=== PATIENT | male | born 1975 | race Caucasian/White ===

== ENCOUNTER → 2017-09-23 | Outpatient (REF) | payer OTHER ==
[2017-09-23 15:46] LABS: ALBUMIN 4.1 GM/DL (3.2-5.2); ALBUMIN/GLOBULIN RATIO 1.08 (1.00-1.93); ALKALINE PHOSPHATASE 85 U/L (45-117); ALT/SGPT 58 U/L (12-78); AST/SGOT 58 U/L (7-37); BILIRUBIN,DIRECT 0.2 MG/DL (0.0-0.2); BILIRUBIN,TOTAL 0.6 MG/DL (0.2-1.0); TOTAL PROTEIN 7.9 GM/DL (6.4-8.2)
== END ==
LOC: M LAB REF 14:45 → M LABDRAW1 14:55
DX: M47.897 Other spondylosis, lumbosacral region (principal)

== ENCOUNTER → 2017-12-16 | Outpatient (REF) | payer OTHER ==
[2017-12-16 16:02] LABS: ALBUMIN 4.2 GM/DL (3.2-5.2); ALBUMIN/GLOBULIN RATIO 1.14 (1.00-1.93); ALKALINE PHOSPHATASE 85 U/L (45-117); ALT/SGPT 43 U/L (12-78); AST/SGOT 33 U/L (7-37); BILIRUBIN,DIRECT 0.1 MG/DL (0.0-0.2); BILIRUBIN,TOTAL 0.4 MG/DL (0.2-1.0); TOTAL PROTEIN 7.9 GM/DL (6.4-8.2)
== END ==
LOC: M LABDRAW1 11:15
DX: M51.37 Other intervertebral disc degeneration, lumbosacral region (principal)

== ENCOUNTER 2018-01-18 06:55 | Day surgery (SDC) | payer OTHER ==
[2018-01-18] MEDS: NS 1,000 ML IV (07:15)
[2018-01-18] MEDS ORDERED: PROPOFOL 500 MG/50 ML VIAL As Ordered (08:33)
[2018-01-18] MEDS ORDERED: fentaNYL 100 MCG/2 ML INJECTION (J3010) As Ordered (08:33)
[2018-01-18] MEDS ORDERED: LIDOCAINE 2% INJ 100 MG/5 ML SDV (FOR ANES.) As Ordered (08:33)
== END 2018-01-18 09:50 | disposition home or self-care (01) ==
LOC: M OPP 06:55
DX: K64.8 Other hemorrhoids (principal); K62.1 Rectal polyp; K52.9 Noninfective gastroenteritis and colitis, unspecified; K92.1 Melena; K29.70 Gastritis, unspecified, without bleeding; K31.89 Other diseases of stomach and duodenum; I10 Essential (primary) hypertension; K21.9 Gastro-esophageal reflux disease without esophagitis; G47.30 Sleep apnea, unspecified; J45.990 Exercise induced bronchospasm; M54.9 Dorsalgia, unspecified; Z79.899 Other long term (current) drug therapy
CPT/HCPCS: 45380

== ENCOUNTER 2020-01-26 15:18 | Day surgery (SDC) | payer OTHER ==
[~2020-01-26 15:18] MED LIST: NAPR1TAB83 PO; OLME1TAB45 PO; OMEP1CAP73 PO; TIZA4CAP PO; TOPI25TA10 PO; VITA-243 PO; VITA100067 PO; VITA50005 PO
[2020-01-26 16:00] VITALS: BP 127/71
[2020-01-26] MEDS ORDERED: NS 1,000 ML IV SCH (16:42)
[2020-01-26] MEDS ORDERED: ACETAMINOPHEN TAB 650MG DOSE (2X325MG) PO PRN ×2 (16:45→22:00)
[2020-01-26] MEDS ORDERED: BISACODYL 10 MG SUPP PR PRN (16:45)
[2020-01-26] MEDS ORDERED: ONDANSETRON 4MG/2ML VIAL IV PRN ×3 (16:45→22:15)
[2020-01-26] MEDS ORDERED: ceFAZolin SOD 2 GM in D5W MINI-BAG PLUS 50 ML IV SCH (16:45)
[2020-01-26] MEDS ORDERED: oxyCODONE 5MG TAB PO PRN (16:45)
[2020-01-26] MEDS ORDERED: NORCO, ANEXSIA 5/325MG TABLET (HYDROcodone/ACETAMINOPHEN) PO PRN ×2 (16:45)
[2020-01-26] MEDS ORDERED: PREG100CA PO (16:48)
[2020-01-26] MEDS ORDERED: ceFAZolin SOD 2 GM in IV 1 EA IV SCH (18:00)
[2020-01-26] MEDS ORDERED: ceFAZolin 2 GM/D5W 50 ML IV BAG (J0690 PER 500MG) As Ordered ONE (20:23)
[2020-01-26] MEDS ORDERED: BUPIVACAINE/EPIN 0.25% 30 ML VIAL As Ordered ONE (20:23)
[2020-01-26] MEDS ORDERED: propofoL 200 MG/20 ML VIAL As Ordered ONE (20:31)
[2020-01-26] MEDS ORDERED: LIDOCAINE 2% 100MG/5ML SDV (FOR ANES.) As Ordered ONE (20:31)
[2020-01-26] MEDS ORDERED: KETAMINE HCL 200 MG/20 ML VIAL As Ordered ONE (20:31)
[2020-01-26] MEDS ORDERED: MIDAZOLAM INJ 2MG/2ML VIAL (J2250 PER 1MG) As Ordered ONE (20:32)
[2020-01-26] MEDS ORDERED: dexameTHASONE 4 MG/ML 1ML VIAL (J1100 PER 1MG) As Ordered ONE (20:33)
[2020-01-26] MEDS ORDERED: ONDANSETRON 4MG/2ML VIAL As Ordered ONE (20:33)
[2020-01-26] MEDS ORDERED: METOPROLOL 5 MG/5 ML VIAL As Ordered ONE (21:08)
[2020-01-26] MEDS ORDERED: KETOROLAC 30 MG/ML 1ML VIAL IV PRN (21:45)
[2020-01-26] MEDS ORDERED: traMADol 50 MG TAB PO PRN (21:45)
[2020-01-26] MEDS ORDERED: LR 1,000 ML IV SCH ×2 (21:45→22:00)
[2020-01-26 22:15] VITALS: BP 125/72
[2020-01-26] MEDS ORDERED: MORPHINE 2 MG/ML 1ML VIAL (J2270) IV PRN (22:15)
[2020-01-26] MEDS ORDERED: PERCOCET 5MG/325MG TAB PO PRN (22:15)
[2020-01-26 22:45] VITALS: BP 114/70
--- NOTE | 2020-01-26 23:13 | HPE ---
DATE OF ADMISSION: 01/26/2020 CHIEF COMPLAINT: Left finger nail bed injury and laceration 5th digit, as well as 5th digit distal phalanx tuft fracture and 4th distal phalanx tuft fracture. HISTORY OF PRESENT ILLNESS: This 44-year-old man was doing some cement work at home. The cement or concrete finishing supervisor came back and crushed his left 4th and 5th digits. He is left-hand dominant. He was seen at [facility]. Apparently there was some cement in the wounds. They performed a bedside irrigation and debridement, splinting and covering up the wounds, and sent him to [facility] at my request. His tetanus was up to date, and he received Ancef 2 grams IV. PAST MEDICAL HISTORY: Includes hypertension and obstructive sleep apnea (LEONARD). MEDICATIONS: Include Topamax, omeprazole, naproxen, olmesartan, duloxetine, gabapentin, and tizanidine. DRUG ALLERGIES: No known drug allergies. SURGICAL HISTORY: Nil. SOCIAL HISTORY: Nonsmoker. Does not use alcohol or drugs. His shipping lead person is his , Radha. 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 His 's number is [phone]. PHYSICAL EXAM: Well appearing 44-year-old man in no acute distress. Alert and oriented times three. Mood and affect pleasant, positive. Patient is normal. He is lying supine in bed. He is able to easily sit up. He has got a bandage on his left 5th digit. This was removed. He has a laceration and removal of the ulnar side of 50% of the nail. The laceration is approximately 2 cm long, mostly on the radial side longitudinally. There is normal sensation both sides of the digit. There is some mild swelling to the distal area of the left 4th digit as well. There is a small 25% subungual hematoma to the left 3rd nail as well. He can flex and extend all the digits of the distal interphalangeal (DIP), proximal interphalangeal (PIP) and metacarpophalangeal (MCP) joints. They are warm and well perfused with cap refill under 3 seconds. No obvious exposed bone. Radiographs were reviewed from [facility] from today; AP, lateral and two obliques. There are tuft fractures of the distal phalanx of both 4th and 5th digits. I agree with the radiologist's interpretation. There is some associated soft tissue deformity of the 5th digit, indicating underlying open fracture. No other injuries. ASSESSMENT/PLAN: This 44-year-old man has tuft fractures of the distal phalanx of both 4th and 5th digits, as well as a nail bed injury to the 5th digit, and a laceration. We discussed the pros, the cons, the risks and benefits of nonsurgical management versus operative intervention, which includes, but not limited to, irrigation and debridement, possible nail bed repair or nail bed splinting, wound closure and splinting 4th and 5th digits for their respective fractures. Specific surgical risks include, but are not to limited to, infection pain, stiffness, weakness, bleeding, neurovascular injury, neuroma, nail bed complications, for example, loss of the nail bed and hook nail, as well as anesthetic complications, blood clots, and other risks. He wished to go ahead. We marked the left upper extremity and signed consent for surgery as well as possible need for blood products, and I explained the pros and cons, the risks and benefits of that to him as well. For now, we will cover this up with a dressing and make him nothing by mouth in preparation for surgery, hopefully tonight.
[2020-01-27 02:00] VITALS: BP 110/67
[2020-01-27 06:00] VITALS: BP 118/72
[2020-01-27] MEDS ORDERED: ceFAZolin SOD 2 GM in IV 1 EA IV ONE (06:00)
--- NOTE | 2020-01-27 10:47 | RO ---
DATE OF PROCEDURE: 01/26/2020 PREOPERATIVE DIAGNOSIS: Left fourth digit distal phalanx tuft fracture plus left fifth digit distal phalanx tuft fracture and nail bed injury and laceration. POSTOPERATIVE DIAGNOSIS: Left fourth digit distal phalanx tuft fracture plus left fifth digit distal phalanx tuft fracture and nail bed injury and laceration. PLANNED PROCEDURE: Left fifth digit irrigation, debridement and closure, possible nail beds splinting repair. PROCEDURE PERFORMED: Left fourth digit splinting of the distal phalanx tuft fracture, plus irrigation and debridement of left fifth digit, plus closure, plus splinting of the left fifth digit distal phalanx tuft fracture. SURGEON: Denton Gerardo MD ASSOCIATE DEAN: Dr. Bonilla TYPE OF ANESTHETIC: Local and monitored anesthesia care (MAC). OPERATIVE PREAMBLE: This 44-year-old man sustained a laceration to his left fourth digit. We talked about the pros and cons, risks and benefits of nonsurgical management versus operative intervention. I reiterated the risk in preoperative holding, marked the left upper extremity and proceeded to surgery. OPERATIVE REPORT: Patient was brought to the operating theater. There placed supine on the operating room table. Hand table was used to the patient's left side. Local preoperative risk block, plus local anesthetic and sedation was used. The limb was prepped and draped in the usual sterile fashion with iodine base prep solution. This was allowed to thoroughly dry for at least 3 minutes prior to draping. Preop time-out was performed to confirm the site, the patient and surgery. IV antibiotics 2 grams of Ancef had been given prior to case. I began by thoroughly irrigating the wound. I identified the wound edges. The nail bed had only been taken off by about 10% and most of the nail bed remains. So, I did not elect to splint that open. It remained open on its own. I then instilled 1 mL of 0.25% Marcaine with epinephrine at the ulnar side, digital nerve as well as well about 1/2 mL of the tip of the finger. I closed the subcutaneous tissue with one interrupted #3-0 Vicryl suture as well as skin with interrupted #3-0 Ethilon suture. The skin was cleaned with wet and dry dressing followed by application of Adaptic gauze and Soo wrap overwrapped the fifth digit. In terms of the fourth digit, I splinted this in full extension only the distal interphalangeal joint (DIP) joint. The patient was woken up from sedation, transferred off the operating table and taken postanesthetic care unit in stable condition. All sponge, needle, and instrument counts were correct. Estimated blood loss 5 mL. No complications. Plan for the patient is to be discharged home according to day surgery criteria. He will not need a prescription and take [id number] medications. Followup in the office in 2 weeks' time to discontinue the sutures and check the wound.
== END 2020-01-27 08:45 | disposition home or self-care (01) ==
LOC: M SDC 15:18 → M MS5PR 15:20 → M SDC 01-27 08:45
PROVIDERS: ATTEND Orthopaedic Surgery Sports Medicine
DX: S62.667B Nondisplaced fracture of distal phalanx of left little finger, initial encounter for open fracture (principal); S62.645A Nondisplaced fracture of proximal phalanx of left ring finger, initial encounter for closed fracture; W23.0XXA Caught, crushed, jammed, or pinched between moving objects, initial encounter; Y92.007 Garden or yard of unspecified non-institutional (private) residence as the place of occurrence of the external cause; Y93.H3 Activity, building and construction; Y99.8 Other external cause status; I10 Essential (primary) hypertension; E78.49 Other hyperlipidemia; E66.9 Obesity, unspecified; G47.30 Sleep apnea, unspecified; K21.9 Gastro-esophageal reflux disease without esophagitis; Z79.899 Other long term (current) drug therapy
CPT/HCPCS: 11010; 12011; 29130; 96361; 96365; J0690; J1100; J2250; J2405; U0002

== ENCOUNTER → 2023-11-01 | Outpatient (CLI) | payer OTHER ==
[~2023-11-01] MED LIST changes: -OLME1TAB45 PO; +OLME1TAB51 PO; +PREG100CA PO
== END ==
LOC: M SLEEP 20:00
PROVIDERS: ATTEND Internal Medicine Pulmonary Disease
DX: G47.33 Obstructive sleep apnea (adult) (pediatric) (principal)

== ENCOUNTER → 2025-05-04 | Outpatient (CLI) | payer OTHER ==
[~2025-05-04] MED LIST changes: +CLAR10CA3 PO; +DULO1CAP4; +GABA-1172; +MELA10CA6 PO; -OLME1TAB51 PO; +OLME1TAB92 PO; +PREG-35 PO; -PREG100CA PO; +ROPI5TAB19; +SEMA1PEN4; +TIZA10TA; +TOPI-256 PO; -TOPI25TA10 PO
== END ==
LOC: M RAD 12:04
DX: D69.6 Thrombocytopenia, unspecified (principal)

== ENCOUNTER → 2025-06-25 | Outpatient (REF) | payer OTHER ==
[2025-06-25 17:21] LABS: APPEARANCE, URINE CLEAR (CLEAR); BACTERIA, URINE AUTO NEGATIVE (NEGATIVE); BILIRUBIN, URINE AUTO NEGATIVE (NEGATIVE); BLOOD, URINE BLOOD 3+ (NEGATIVE); GLUCOSE, URINE (UA) AUTO NEGATIVE (NEGATIVE); KETONE, URINE AUTO NEGATIVE (NEGATIVE); LEUKOCYTE ESTERASE, URINE AUTO TRACE (NEGATIVE); NITRITE, URINE AUTO NEGATIVE (NEGATIVE); PROTEIN, URINE AUTO NEGATIVE (NEGATIVE); RBC, URINE AUTO 39 /HPF (0-3); SPECIFIC GRAVITY URINE AUTO 1.012 (1.002-1.035); SQUAMOUS EPITHELIAL CELL UR AU 0 /HPF (0-6); UROBILINOGEN, URINE AUTO 0.2 mg/dL (0.0-2.0); WBC, URINE AUTO 2 /HPF (0-3)
== END ==
LOC: M SMT 16:37
PROVIDERS: ATTEND Nurse Practitioner Family
DX: N13.30 Unspecified hydronephrosis (principal)

== ENCOUNTER 2025-07-04 01:40 | Inpatient (IN) | payer OTHER ==
[2025-07-04] VITALS (7 sets, daily range): BP systolic 110–133; BP diastolic 58–89; TEMP 97–97.9; O2SAT 92–95
[~2025-07-04] VITALS: Ht 177.8 cm; Wt 174.9 kg
[~2025-07-04 01:40] MED LIST changes: -DULO1CAP4; +DULO1CAP4 PO; -GABA-1172; +GABA-1172 PO; -ROPI5TAB19; +ROPI5TAB19 PO; -TIZA10TA; +TIZA10TA PO
[2025-07-04 03:44] LABS: BASO # 0.0 10^3/uL (0.0-0.2); BASO % 0.3 % (0.0-1.0); EOS # 0.1 10^3/uL (0.0-0.5); EOS % 1.2 % (0.0-3.0); LYMPH # 0.9 10^3/uL (1.5-5.0); LYMPH % 15.0 % (24.0-44.0); MONO # 0.7 10^3/uL (0.0-0.8); MONO % 11.8 % (2.0-8.0); NEUTROPHILS # 4.3 10^3/uL (1.5-8.5); NEUTROPHILS % 71.0 % (36.0-66.0)
[2025-07-04 03:45] LABS: PLATELET COUNT, AUTOMATED 77 10^3/uL (150-450)
[2025-07-04 03:55] LABS: INR 1.12
[2025-07-04 04:10] LABS: CALCIUM LEVEL 8.3 MG/DL (8.5-10.1); CARBON DIOXIDE LEVEL 25.0 MMOL/L (20-31); CHLORIDE LEVEL 107.0 MMOL/L (98-107); CREATININE FOR GFR 2.11 MG/DL (0.70-1.30); GLOMERULAR FILTRATION RATE 37.7 (>60); POTASSIUM SERUM 4.0 MMOL/L (3.5-5.1); SODIUM LEVEL 143.0 MMOL/L (136-145)
[2025-07-04 06:00] LABS: VENOUS BASE EXCESS -1.9 (-2.0-2.0); VENOUS HCO3 23.1 MMOL/L (23.0-27.0); VENOUS O2 SATURATION 94.1 % (60.0-80.0); VENOUS PARTIAL PRESSURE CO2 40.3 mmHg (38.0-50.0); VENOUS PARTIAL PRESSURE O2 76.0 mmHg (30.0-50.0); VENOUS PH 7.377 UNITS (7.330-7.430); VENOUS STANDARD HCO3 22.9 MMOL/L; VENOUS TOTAL CO2 24.4 MMOL/L (24.0-28.0)
[2025-07-04 06:29] LABS: CK-MB VALUE MASS 3.5 NG/ML (<3.6)
[2025-07-04 06:31] LABS: CPK CREATINE PHOSPHOKINASE 186.0 U/L (46-171); MB/CK RELATIVE INDEX 1.88 (< OR =4)
[2025-07-04 06:32] LABS: ALT/SGPT 28.0 U/L (7.0-40); AST/SGOT 36.0 U/L (<34)
[2025-07-04 07:33] LABS: CK-MB VALUE MASS 3.3 NG/ML (<3.6)
[2025-07-04 07:35] LABS: CPK CREATINE PHOSPHOKINASE 177.0 U/L (46-171); MB/CK RELATIVE INDEX 1.86 (< OR =4)
[2025-07-04] MEDS: D5W/0.45% SODIUM CHLORIDE 1,000 ML IV SCH (09:07)
[2025-07-04] MEDS ORDERED: AMLO1TAB24 PO (09:29)
[2025-07-04] MEDS ORDERED: HOME MED LIST COMPLETE! XX SCH (09:35)
[2025-07-04] MEDS ORDERED: DICL100G10 TOP (09:35)
[2025-07-04 10:56] LABS: KETONE, URINE AUTO RFX NEGATIVE (NEGATIVE); LEUKOCYTE ESTERASE UR AUTO RFX NEGATIVE (NEGATIVE); MUCUS, URINE RFX SMALL (NEGATIVE); NITRITE, URINE AUTO RFX NEGATIVE (NEGATIVE); RBC, URINE AUTO RFX 113 /HPF (0-3); SQUAM EPITHELIAL CELL UR AURFX 0 /HPF (0-6); WBC, URINE AUTO RFX 2 /HPF (0-3)
[2025-07-04] MEDS ORDERED: LIDOCAINE 2% 100 MG/5 ML SDV (FOR ANES.) As Ordered ONE (16:12)
[2025-07-04] MEDS ORDERED: dexAMETHasone 4 MG/ML 1 ML VIAL As Ordered ONE (16:13)
[2025-07-04] MEDS ORDERED: ONDANSETRON 4MG/2ML VIAL As Ordered ONE (16:13)
[2025-07-04] MEDS ORDERED: MIDAZOLAM INJ 2 MG/2 ML VIAL As Ordered ONE (16:16)
[2025-07-04] MEDS ORDERED: ACETAMINOPHEN 1000MG/100ML IV BAG As Ordered ONE (17:00)
[2025-07-04] MEDS ORDERED: KETOROLAC 30 MG/ML 1 ML VIAL As Ordered ONE (17:00)
[2025-07-04] MEDS: ISOVUE-300 61% 100 ML VIAL As Ordered ONE (17:20)
[2025-07-04] MEDS: ACETAMINOPHEN 325 MG TAB PO ONE (23:14)
[2025-07-05] MEDS ORDERED: FLUID PLACE HOLDER IV SCH (02:00)
[2025-07-05] MEDS ORDERED: CEFAZOLIN SOD IV SCH (02:00)
[2025-07-05] MEDS: ceFAZolin SODIUM 2 GM in DEXTROSE 5% (D5W) ADV/MINI-BAG 50 ML IV SCH (02:55)
[2025-07-05 04:52] VITALS: BP 132/88; TEMP 98.2; O2SAT 94
[2025-07-05 07:32] LABS: PLATELET COUNT, AUTOMATED 82 10^3/uL (150-450)
[2025-07-05 07:37] LABS: CALCIUM LEVEL 8.6 MG/DL (8.5-10.1); CARBON DIOXIDE LEVEL 24.0 MMOL/L (20-31); CHLORIDE LEVEL 109.0 MMOL/L (98-107); CREATININE FOR GFR 2.13 MG/DL (0.70-1.30); GLOMERULAR FILTRATION RATE 37.2 (>60); POTASSIUM SERUM 4.6 MMOL/L (3.5-5.1); SODIUM LEVEL 145.0 MMOL/L (136-145)
[2025-07-05] MEDS: D5W/0.45% SODIUM CHLORIDE 1,000 ML IV ONE (11:49)
[2025-07-05] MEDS: rOPINIRole 0.25 MG TAB PO SCH (11:49)
[2025-07-05] MEDS: OMEPRAZOLE 20MG CAP PO SCH (11:49)
[2025-07-05] MEDS: GABAPENTIN 300 MG CAP PO SCH (11:49)
[2025-07-05] MEDS: D5W/0.45% SODIUM CHLORIDE 1,000 ML IV SCH (13:08)
[2025-07-05 14:00] VITALS: BP 131/87; TEMP 98.4; O2SAT 95
[2025-07-05 19:52] VITALS: BP 118/65; TEMP 98.1; O2SAT 96
[2025-07-05] MEDS: RAMELTEON 8 MG TAB PO PRN (21:10)
[2025-07-05 21:11] VITALS: BP 118/65
[2025-07-05] MEDS: amLODIPine 5 MG TAB PO SCH (21:11)
[2025-07-05] MEDS: HEPARIN SOD 5000 UNITS/ML 1 ML VIAL/SYRINGE SQ SCH (21:13)
[2025-07-06 05:20] VITALS: BP 122/77; TEMP 97.3; O2SAT 94
[2025-07-06 07:18] LABS: CALCIUM LEVEL 8.7 MG/DL (8.5-10.1); CARBON DIOXIDE LEVEL 24.0 MMOL/L (20-31); CHLORIDE LEVEL 107.0 MMOL/L (98-107); CREATININE FOR GFR 1.93 MG/DL (0.70-1.30); GLOMERULAR FILTRATION RATE 41.9 (>60); POTASSIUM SERUM 4.6 MMOL/L (3.5-5.1); SODIUM LEVEL 143.0 MMOL/L (136-145)
== END 2025-07-06 10:50 | disposition home or self-care (01) | DRG 660 ==
LOC: M ED 01:40 → M ED INP 08:39 → M MS5PR 18:15
PROVIDERS: ADMIT Internal Medicine; ATTEND Internal Medicine
PROC: 0TC68ZZ Extirpation of Matter from Right Ureter, Via Natural or Artificial Opening Endoscopic (ICD-10-PCS; 2025-07-04)
PROC: 0T768DZ Dilation of Right Ureter with Intraluminal Device, Via Natural or Artificial Opening Endoscopic (ICD-10-PCS; principal; 2025-07-04 09:30)
DX: N13.0 Hydronephrosis with ureteropelvic junction obstruction (principal); N13.4 Hydroureter; I10 Essential (primary) hypertension; N17.9 Acute kidney failure, unspecified; G25.81 Restless legs syndrome; K21.9 Gastro-esophageal reflux disease without esophagitis; G62.9 Polyneuropathy, unspecified; E66.9 Obesity, unspecified; K76.0 Fatty (change of) liver, not elsewhere classified; Z79.899 Other long term (current) drug therapy

== ENCOUNTER 2025-07-14 09:09 | Emergency (ER) | payer OTHER ==
[~2025-07-14] VITALS: Ht 180.3 cm; Wt 166.6 kg
[~2025-07-14 09:09] MED LIST changes: +AMLO1TAB24 PO; +DICL100G10 TOP
[2025-07-14 12:04] LABS: BASO # 0.0 10^3/uL (0.0-0.2); BASO % 0.2 % (0.0-1.0); EOS # 0.1 10^3/uL (0.0-0.5); EOS % 0.6 % (0.0-3.0); LYMPH # 1.6 10^3/uL (1.5-5.0); LYMPH % 15.5 % (24.0-44.0); MONO # 1.2 10^3/uL (0.0-0.8); MONO % 10.9 % (2.0-8.0); NEUTROPHILS # 7.6 10^3/uL (1.5-8.5); NEUTROPHILS % 72.2 % (36.0-66.0); PLATELET COUNT, AUTOMATED 141 10^3/uL (150-450)
[2025-07-14 12:15] VITALS: TEMP 97.2
[2025-07-14] MEDS: INDOMETHACIN 25 MG CAP PO ONE (12:21)
[2025-07-14] MEDS: ACETAMINOPHEN *IV* 1,000 MG in IV 1 EA IV ONE (12:21)
[2025-07-14 12:30] LABS: C REACTIVE PROTEIN QUANTITATIV 5.43 MG/DL (<1.0); CALCIUM LEVEL 8.9 MG/DL (8.5-10.1); CARBON DIOXIDE LEVEL 27.0 MMOL/L (20-31); CHLORIDE LEVEL 101.0 MMOL/L (98-107); CREATININE FOR GFR 1.8 MG/DL (0.70-1.30); GLOMERULAR FILTRATION RATE 45.6 (>60); POTASSIUM SERUM 4.3 MMOL/L (3.5-5.1); SODIUM LEVEL 138.0 MMOL/L (136-145)
[2025-07-14] MEDS: ceFAZolin SOD 1 GM in DEXTROSE 5% (D5W) ADV/MINI-BAG 50 ML IV ONE (14:24)
[2025-07-14] MEDS ORDERED: CEPH500C PO (15:59)
[2025-07-14 16:01] VITALS: O2SAT 95
[2025-07-14 16:12] VITALS: BP 133/73
[2025-07-14] MEDS: dexAMETHasone 4 MG/ML 1 ML VIAL IV ONE (16:14)
== END 2025-07-14 16:25 | disposition home or self-care (01) ==
LOC: M ED 09:09
DX: L03.115 Cellulitis of right lower limb (principal); N20.1 Calculus of ureter; N18.9 Chronic kidney disease, unspecified; M77.31 Calcaneal spur, right foot; Z87.442 Personal history of urinary calculi; G25.81 Restless legs syndrome; Z79.899 Other long term (current) drug therapy
CPT/HCPCS: 73630; 74176; 80048; 84145; 84550; 85025; 85652; 86140; 93971; 96374; 96375; 99285; J0131; J0690; J1100

== ENCOUNTER → 2025-07-23 | Outpatient (CLI) | payer OTHER ==
[~2025-07-23] MED LIST changes: +CEPH500C PO
== END ==
LOC: M WUC 11:55
PROVIDERS: ATTEND Physician Assistant
DX: R70.0 Elevated erythrocyte sedimentation rate (principal); M25.571 Pain in right ankle and joints of right foot; M13.0 Polyarthritis, unspecified

== ENCOUNTER → 2025-08-14 | Outpatient (CLI) | payer OTHER ==
[~2025-08-14] MED LIST changes: +PROHANCE 279.3MG/ML 15ML VIAL As Ordered ONE; +PROHANCE 279.3MG/ML 5ML VIAL As Ordered ONE
== END ==
LOC: M RAD 16:29
PROVIDERS: ATTEND Physician Assistant
DX: M25.474 Effusion, right foot (principal); M79.671 Pain in right foot; L03.115 Cellulitis of right lower limb
CPT/HCPCS: 73720; A9579